=== PATIENT | female | born 2005 | race Two or more races ===

== ENCOUNTER 2023-02-09 08:26 | Emergency (ER) | payer MEDICAID, OTHER ==
[~2023-02-09] VITALS: Ht 165.1 cm; Wt 58.4 kg
[2023-02-09 09:03] VITALS: BP 116/72; PULSE 81; RESP 16; TEMP 99.1; O2SAT 98
[2023-02-09] MEDS ORDERED: diphenhdrAMINE HCL 50 MG/1 ML VL IM ONE (09:15)
[2023-02-09] MEDS ORDERED: EPINEPHrine HCL 1 MG/1 ML AMP SC ONE (09:15)
[2023-02-09] MEDS ORDERED: METH4PAK PO (09:31)
[2023-02-09] MEDS ORDERED: HYDR25CA PO (09:31)
== END 2023-02-09 09:45 | disposition home or self-care (01) ==
LOC: ER 08:26
DX: T78.40XA Allergy, unspecified, initial encounter (principal); M54.50 Low back pain, unspecified; X58.XXXA Exposure to other specified factors, initial encounter
CPT/HCPCS: 96372; 99284; J0171; J1200